=== PATIENT | female | born 1960 | race Native Hawaiian/Other Pacific Islander ===

== ENCOUNTER 2017-01-17 18:35 | Emergency (ER) | payer OTHER ==
[2017-01-17 18:43] VITALS: TEMP 98.1
--- NOTE | 2017-01-17 20:05 | C.PDOC ---
History Of Present Illness 56 year old patient presents to the ED complaining of twisting her ankle prior to arrival. Patient denies fever, numbness or weakness. Time Seen by Provider: 01/17/17 18:57 Chief Complaint (Nursing): Lower Extremity Problem/Injury History Per: Patient History/Exam Limitations: no limitations Onset/Duration Of Symptoms: Mins (prior to arrival) Current Symptoms Are (Timing): Still Present Severity: Mild Pain Scale Rating Of: 3 Recent travel outside of the [place]: No - Ankle/Foot Description Of Injury: Twisted Past Medical History Reviewed: Historical Data, Nursing Documentation, Vital Signs Vital Signs: Last Vital Signs Temp 98.1 F 01/17/17 18:39 Pulse 86 01/17/17 21:07 Resp 20 01/17/17 21:07 BP 116/74 01/17/17 21:07 Pulse Ox 96 01/17/17 22:10 - Medical History PMH: Asthma, HTN, Hypercholesterolemia Family History: States: Unknown Family Hx - Social History Hx Tobacco Use: No Hx Alcohol Use: No - Immunization History Hx Tetanus Toxoid Vaccination: No Hx Influenza Vaccination: Yes Hx Pneumococcal Vaccination: No Review Of Systems Except As Marked, All Systems Reviewed And Found Negative. Constitutional: Negative for: Fever Musculoskeletal: Positive for: Foot Pain (right), Other (right ankle pain) Skin: Positive for: Bruising (right foot) Neurological: Negative for: Weakness, Numbness Physical Exam - Physical Exam Appears: Non-toxic, No Acute Distress Skin: Warm, Dry, No Rash, Ecchymosis (right foot) Extremity: Other (Right ankle: tenderness to the lateral aspect of the malleolus and to the 4th and 5th metatarsal bones (-)deformity (+)decreased ROM secondary to pain) ED Course And Treatment O2 Sat by Pulse Oximetry: 96 - Other Rad right ankle xr X-Ray: Interpreted by Me, Viewed By Me Interpretation: Lateral malleolus fracture. Non-displaced. right foot xr X-Ray: Interpreted by Me, Viewed By Me Interpretation: Lateral malleolus fracture. Non-displaced. - CT Scan/US Head CT Other Rad Studies (CT/US): Read By Radiologist, Radiology Report Reviewed CT/US Interpretation: EXAM: CT Head Without Intravenous Contrast. CLINICAL HISTORY: 56 years old, female; Pain and injury or trauma; Fall; Initial encounter; Blunt trauma (contusions or. hematomas); Headache. TECHNIQUE: Axial computed tomography images of the head/brain without intravenous contrast. This CT exam. was performed using one or more of the following dose reduction techniques: automated exposure. control, adjustment of the mA and/or kV according to patient size, and/or use of iterative. reconstruction technique. Coronal and sagittal reformatted images were created and reviewed. COMPARISON: No relevant prior studies available. FINDINGS: Brain: No intracranial hemorrhage. No mass. No edema. Ventricles: No hydrocephalus. Bones/joints: No acute fracture. Soft tissues: Postsurgical changes of nose. Vasculature: Mild atherosclerotic disease of intracranial arteries. Sinuses: Scattered minimal mucosal thickening of ethmoid sinuses. Mastoid air cells: No mastoid effusion. Orbits: Unremarkable as visualized. 1. No intracranial hemorrhage. 2. Incidental/non-acute findings are described above. Thank you for allowing us to participate in the care of your patient. Dictated and Authenticated by: Huan Champion MD. 01/17/2017 9:26 PM Eastern Time ([place] & [place]) Progress Note: Right ankle and right foot x-ray taken. X-rays reviewed. Short leg splint applied to patient by forest technician and checked by me. Patient is discharged and instructed to follow up with ortho in 1-2 days or return if symptoms worsen. Disposition - Disposition Referrals: Christy Taylor MD [Staff Provider] - Disposition: HOME/ ROUTINE Disposition Time: 22:03 Condition: STABLE Additional Instructions: Follow up with PMD within 1-2 days. Return to ED if feel worse. Prescriptions: Ibuprofen [Motrin Tab] 600 mg PO Q8 #30 tab oxyCODONE/Acetaminophen [Percocet 5/325 mg Tab] 1 tab PO QID PRN #20 tab PRN Reason: Pain Instructions: Ankle Fracture (ED), Head Injury (ED) Forms: Work Excuse - Clinical Impression Clinical Impression: Minor head injury, Fx lateral malleolus-closed - PA / ROVER TENDER / Resident Statement MD/DO has reviewed & agrees with the documentation as recorded. - Scribe Statement The provider has reviewed the documentation as recorded by the Scribe Kelli Howard All medical record entries made by the Scribe were at my direction and personally dictated by me. I have reviewed the chart and agree that the record accurately reflects my personal performance of the history, physical exam, medical decision making, and the department course for this patient. I have also personally directed, reviewed, and agree with the discharge instructions and disposition.
[2017-01-17] MEDS ORDERED: Oxycodone/Acetaminophen 5/325 mg Tab PO STA (20:34)
[2017-01-17] MEDS ORDERED: Oxycodone/Acetaminophen 5/325 mg Tab ONE (20:40)
[2017-01-17 21:07] VITALS: BP 116/74; PULSE 86; RESP 20
--- NOTE | 2017-01-17 21:26 | CT ---
EXAM: CT Head Without Intravenous Contrast. CLINICAL HISTORY: 56 years old, female; Pain and injury or trauma; Fall; Initial encounter; Blunt trauma (contusions or hematomas); Headache TECHNIQUE: Axial computed tomography images of the head/brain without intravenous contrast. This CT exam was performed using one or more of the following dose reduction techniques: automated exposure control, adjustment of the mA and/or kV according to patient size, and/or use of iterative reconstruction technique. Coronal and sagittal reformatted images were created and reviewed. COMPARISON: No relevant prior studies available. FINDINGS: Brain: No intracranial hemorrhage. No mass. No edema. Ventricles: No hydrocephalus. Bones/joints: No acute fracture. Soft tissues: Postsurgical changes of nose. Vasculature: Mild atherosclerotic disease of intracranial arteries. Sinuses: Scattered minimal mucosal thickening of ethmoid sinuses. Mastoid air cells: No mastoid effusion. Orbits: Unremarkable as visualized. IMPRESSION: 1. No intracranial hemorrhage. 2. Incidental/non-acute findings are described above.
[2017-01-17 22:06] VITALS: O2SAT 96
--- NOTE | 2017-01-18 11:06 | RAD ---
PROCEDURE: Right foot dated 01/17/2017. HISTORY: fall COMPARISON: Correlation/comparison made with concurrent radiographs of the right ankle. FINDINGS: BONES: No evidence of acute displaced fracture nor dislocation. Osseous structures appear intact. JOINTS: Mild hallux valgus deformity with overgrowth of the 1st metatarsal and mild DJD 1st MTP joint. There is prominence of the overlying medial soft tissues . . Mild degenerative changes of the interphalangeal joints. Small posterior and tiny plantar calcaneal enthesophyte formation. SOFT TISSUES: As above OTHER FINDINGS: None. IMPRESSION: No acute fracture nor dislocation. Mild hallux valgus deformity with overgrowth of the head of the 1st metatarsal and mild DJD 1st MTP joint. There is also overlying mild medial soft tissue swelling.
--- NOTE | 2017-01-18 11:12 | RAD ---
PROCEDURE: Right Wrist Radiographs. HISTORY: injury COMPARISON: Correlation made with concurrent radiographs right foot. FINDINGS: BONES: No evidence of acute displaced fracture nor dislocation. The osseous structures intact. Ankle mortise maintained. Talar dome intact. Minor degenerative osteoarthritis. Small posterior and tiny plantar calcaneal enthesophyte formation. Minimal medial soft tissue swelling. JOINTS: Normal. No dislocation. SOFT TISSUES: As above OTHER FINDINGS: None. IMPRESSION: No acute fracture seen. Mild DJD. Minimal medial soft tissue swelling
== END 2017-01-17 22:25 | disposition home or self-care (01) ==
LOC: C.ER 18:35
DX: S82.64XA Nondisplaced fracture of lateral malleolus of right fibula, initial encounter for closed fracture (principal); S09.90XA Unspecified injury of head, initial encounter; X50.9XXA Other and unspecified overexertion or strenuous movements or postures, initial encounter

== ENCOUNTER 2017-10-24 18:19 | Emergency (ER) | payer OTHER ==
[2017-10-24 18:20] VITALS: BMI 22.3
[2017-10-24 20:03] VITALS: BP 126/80; PULSE 89; RESP 18; TEMP 98.7
[2017-10-24 20:04] VITALS: O2SAT 97
[2017-10-24] MEDS ORDERED: Oxycodone/Acetaminophen 5/325 mg Tab PO STA (20:04)
--- NOTE | 2017-10-24 20:04 | C.PDOC ---
History Of Present Illness Pia Trimble is a 57 year old female, with a past medical history of hypertension and asthma, who presents to the emergency department complaining of a worsening chronic neck pain, chills, sore throat, and congestion onset since yesterday. She denies any vomiting, or fever. No further medical complaints. PMD: Rosa Dodson Time Seen by Provider: 10/24/17 18:57 Chief Complaint (Nursing): Back Pain History Per: Patient History/Exam Limitations: no limitations Onset/Duration Of Symptoms: Days (x1) Current Symptoms Are (Timing): Still Present Quality Of Discomfort: "Pain" Pain Scale Rating Of: 9 Previous Symptoms: Neck Pain (chronic) Associated Symptoms: Other (chills, sore throat, congestion) Past Medical History Reviewed: Historical Data, Nursing Documentation, Vital Signs Vital Signs: Last Vital Signs Temp 98.7 F 10/24/17 20:02 Pulse 89 10/24/17 20:02 Resp 18 10/24/17 20:02 BP 126/80 10/24/17 20:02 Pulse Ox 97 10/24/17 20:50 - Medical History PMH: Asthma, HTN, Hypercholesterolemia Surgical History: Denies: Pacemaker Family History: States: Unknown Family Hx - Social History Hx Tobacco Use: No Hx Alcohol Use: Yes (OCCASIONAL) Hx Substance Use: No - Immunization History Hx Tetanus Toxoid Vaccination: No Hx Influenza Vaccination: Yes Hx Pneumococcal Vaccination: No Review Of Systems Except As Marked, All Systems Reviewed And Found Negative. Constitutional: Positive for: Chills. Negative for: Fever ENT: Positive for: Nose Congestion, Throat Pain Gastrointestinal: Negative for: Vomiting Musculoskeletal: Positive for: Neck Pain (chronic) Physical Exam - Physical Exam Skin: Normal Color, Warm, Dry Head: Atraumatic, Normacephalic Eye(s): bilateral: Normal Inspection, PERRL, EOMI Ear(s): Bilateral: Normal Nose: Normal Throat: No Erythema, No Exudate (tonsillar) Neck: No Normal (mildly diffused neck tenderness), Supple Cardiovascular: Rhythm Regular Respiratory: Normal Breath Sounds, No Accessory Muscle Use Gastrointestinal/Abdominal: Normal Exam, Soft, No Tenderness Back: Normal Inspection, No CVA Tenderness Extremity: Normal ROM, No Pedal Edema, No Deformity, No Swelling Neurological/Psych: Oriented x3, Normal Speech Gait: Steady ED Course And Treatment O2 Sat by Pulse Oximetry: 97 (RA) Pulse Ox Interpretation: Normal - Other Rad C-spine xray X-Ray: Interpreted by Me Interpretation: ALIX Medical Decision Making Medical Decision Making: Initial Impression: Chronic neck pain, pharyngitis Initial Plan: --Amoxicillin 500 mg PO --Percocet 1 tab PO --Cervical Spine AP & Lateral [RAD] --reevaluation Disposition - Disposition Disposition: HOME/ ROUTINE Disposition Time: 20:04 Condition: STABLE Additional Instructions: Follow up with your PMD within 2-3 days. Return to ED if feel worse. Prescriptions: Amoxicillin 500 mg PO Q8 #30 tab oxyCODONE/Acetaminophen [Percocet 5/325 mg Tab] 1 tab PO QID PRN #20 tab PRN Reason: Pain Instructions: Pharyngitis (ED) Forms: [facility] (Czech) - Clinical Impression Clinical Impression: Pharyngitis, Neck pain - Scribe Statement Thiago Minor All medical record entries made by the Scribe were at my direction and personally dictated by me. I have reviewed the chart and agree that the record accurately reflects my personal performance of the history, physical exam, medical decision making, and the department course for this patient. I have also personally directed, reviewed, and agree with the discharge instructions and disposition.
[2017-10-24] MEDS ORDERED: Oxycodone/Acetaminophen 5/325 mg Tab ONE (20:08)
--- NOTE | 2017-10-25 09:35 | RAD ---
PROCEDURE: Cervical Spine Radiographs. HISTORY: Pain. COMPARISON: None. FINDINGS: BONES: There is straightening of the cervical spine with loss of normal cervical lordosis. There is 3 mm degenerative retrolisthesis of C5 on C6. There is no acute fracture. The craniocervical junction is normal. The atlantoaxial joint is normal. DISC SPACES: There is moderate multilevel degenerative disc disease from C4-5 through C6-7 with anterior osteophytes, reduced disc heights and multilevel facet arthropathy, worse at C5-6. SOFT TISSUES: Normal. No prevertebral soft tissue swelling. OTHER FINDINGS: None. IMPRESSION: Moderate multilevel degenerative disc disease from C4-5 through C6-7, worse at C5-6 with degenerative 3 mm retrolisthesis of C5 on C6. Straightening of the cervical spine may be positional or related to muscle spasm.
== END 2017-10-24 20:12 | disposition home or self-care (01) ==
LOC: C.ER 18:19
DX: J02.9 Acute pharyngitis, unspecified (principal); M54.2 Cervicalgia; I10 Essential (primary) hypertension; E78.00 Pure hypercholesterolemia, unspecified

== ENCOUNTER 2017-12-16 06:56 | Day surgery (SDC) | payer OTHER ==
[2017-12-16] MEDS ORDERED: Bupivacaine HCl 0.25% PF (10 ml) Inj ONE (07:27)
[2017-12-16] MEDS ORDERED: Lidocaine Hydrochloride 0 ML INJ ONE (07:28)
[2017-12-16] MEDS ORDERED: MethylPREDNISolone Depo 40 mg/ml Inj ONE (07:28)
[2017-12-16] MEDS ORDERED: Iohexol 240 (50 ml) ONE ×2 (07:28→11:54)
[2017-12-16 07:58] VITALS: O2SAT 98
--- NOTE | 2017-12-16 09:57 | OP ---
PROCEDURE DATE: 12/16/2017. PREOPERATIVE DIAGNOSES: 1. Cervical radiculopathy. 2. Cervical disc displacement without myopathy. 3. Myalgias. POSTOPERATIVE DIAGNOSES: 1. Cervical radiculopathy. 2. Cervical disc displacement without myopathy. 3. Myalgias. PROCEDURES: 1. Cervical epidural steroid injection, C6-C7. 2. Epidurogram. 3. Trigger point injections. X-RAY: [id number], fluoroscopy of the spine. ANESTHESIA: MAC/local. SURGEON: Alphonse Saul MD COMPLICATIONS: None. BLOOD LOSS: 2 mL. BRIEF HISTORY AND INDICATIONS: The patient has cervical radiculopathy and upper extremity pain and tingling radiating down from the posterior neck down to the arm and posterior shoulder side to all fingers. This patient presents today for a cervical epidural steroid injection under fluoroscopic guidance at the C6-C7 interlaminar space. PROCEDURE IN DETAIL: The patient, after giving informed consent for the procedure, was brought back to the procedure room, sitting in a wheelchair. Routine monitors were applied. The patient was leant forward with her neck flexed and forehead placed on a towel on the OR table. Neck was flexed at approximately 50 degrees lateral. Lateral fluoroscopic view was obtained at the C6-C7 levels. The patient was prepped and draped in a sterile fashion. A 27-gauge needle was used to inject lidocaine 1% subcutaneously over the skin overlying the interlaminar space of C6-C7. Subsequently, a 22-gauge Tuohy needle was used to advance into the C6-C7 interlaminar area using loss of resistance technique to enter the epidural space. The needle position was confirmed in lateral views. Contrast 180 Omnipaque was injected 0.5 mL showing good epidurogram. Subsequently, 80 mg of Depo-Medrol with 1 mL of normal saline was injected with intermittent negative aspiration. No heme or CSF was aspirated throughout. No paresthesias were elicited throughout. The patient tolerated the procedure well. Vital signs remained stable. The patient reported slight reduction in pain post procedure. Epidurogram: The patient underwent cervical epidural steroid injection today. The epidural was observed at the level of C6-C7 under AP and lateral fluoroscopic guidance. 2 mL of Omnipaque 200 contrast was injected that evenly spread from level C4 to C7 level with posterior-anterior dye spread bilaterally at level of C6-C7 and C5-C6. There appeared to be a moderate degree spondylosis at the level of C5-C6 and moderate degree of spondylosis at the level of C6-C7 with disc protrusion at the level of C6-C7. The intervertebral disc height at the level of C5-C6 was slightly less than normal and intervertebral disc height at the level of C7-T1 was well maintained. The neural foramen appeared to be patent. Conclusion: Good epidural dye containment from C6-C7 with intervertebral disc protrusion at the level of C5-C6, C6-C7, maintaining less than normal intervertebral disc height at level C5-C6. Spondylosis noted at the level of C4 through T1. Copies of the images are on file. Trigger Point Injections/Greater and Lesser Occipital Nerve Blocks: Tender to palpation on cervical areas and pain shooting up posterior head. Patient signed informed consent. Cervical area was prepped and draped in sterile fashion. A 25-gauge needle was used to inject trigger point areas in trapezius muscles, paracervical muscles, and rhomboids bilaterally. The greater and lesser occipital nerves were also injected bilaterally by inserting needle 1 cm lateral and inferior to the posterior occipital protuberance. Total volume used was 10 mL of 0.25% Marcaine mixed with 40 mg Kenalog. Intermittent aspiration was done throughout with no heme or CSF aspirated throughout. Patient tolerated procedure well. DISPOSITION: Patient was taken to the recovery room in stable condition. Patient was given instructions to follow up in two weeks and was discharged in stable condition. No events or complications. Alphonse Saul MD
[2017-12-16 11:09] VITALS: BP 104/70; PULSE 66; RESP 18; TEMP 98.6
--- NOTE | 2017-12-16 13:48 | RAD ---
PROCEDURE: Intraoperative Fluoroscopy. HISTORY: CERVICAL RADICULOPATHY FINDINGS: Fluoroscopic assistance was provided for cervical epidural. Submitted images from the current procedure: 3.0. Please refer to the operative report from BRET Beard. Total exam DLP: 0.5 30 (mGy)
== END 2017-12-16 09:05 | disposition home or self-care (01) ==
LOC: C.SDS 06:56
PROVIDERS: ATTEND Anesthesiology Pain Medicine
DX: M50.123 Cervical disc disorder at C6-C7 level with radiculopathy (principal); M79.1 Myalgia
CPT/HCPCS: 20552; 62321; 82948; J1030; Q9966

== ENCOUNTER 2018-02-10 05:54 | Day surgery (SDC) | payer OTHER ==
[2018-02-10] MEDS ORDERED: Bupivacaine HCl 0.25% PF (30 ml) Inj ONE (07:16)
[2018-02-10] MEDS ORDERED: MethylPREDNISolone Depo 40 mg/ml Inj ONE (07:16)
[2018-02-10] MEDS ORDERED: Iohexol 240 (50 ml) ONE (07:17)
[2018-02-10] MEDS ORDERED: Lidocaine Hydrochloride 0 ML INJ ONE (07:17)
[2018-02-10 08:46] VITALS: BP 125/72; PULSE 66; RESP 15; TEMP 97.1; O2SAT 99
--- NOTE | 2018-02-10 15:20 | OP ---
PREOPERATIVE DIAGNOSES: 1. Cervical radiculopathy. 2. Cervical disc displacement without myopathy. 3. Myalgias. POSTOPERATIVE DIAGNOSES: 1. Cervical radiculopathy. 2. Cervical disc displacement without myopathy. 3. Myalgias. PROCEDURE: 1. Cervical epidural steroid injection, C6-C7. 2. Epidurogram. 3. Trigger point injections. X-RAY: [id number], fluoroscopy of the spine. ANESTHESIA: MAC/local. SURGEON: Alphonse Saul MD COMPLICATIONS: None. BLOOD LOSS: 2 mL. BRIEF HISTORY AND INDICATIONS: The patient has cervical radiculopathy and upper extremity pain and tingling radiating down from the posterior neck down to the arm and posterior shoulder side to all fingers. This patient presents today for a cervical epidural steroid injection under fluoroscopic guidance at the C6-C7 interlaminar space. PROCEDURE IN DETAIL: The patient, after giving informed consent for the procedure, was brought back to the procedure room, sitting in a wheelchair. Routine monitors were applied. The patient was leant forward with his neck flexed and forehead placed on a towel on the OR table. Neck was flexed at approximately 50 degrees lateral. Lateral fluoroscopic view was obtained at the C6-C7 levels. The patient was prepped and draped in a sterile fashion. A 27-gauge needle was used to inject lidocaine 1% subcutaneously over the skin overlying the interlaminar space of C6-C7. Subsequently, a 22-gauge Tuohy needle was used to advance into the C6-C7 interlaminar area using loss of resistance technique to enter the epidural space. The needle position was confirmed in lateral views. Contrast 180 Omnipaque was injected 0.5 mL showing good epidurogram. Subsequently, 80 mg of Depo-Medrol with 1 mL of normal saline was injected with intermittent negative aspiration. No heme or CSF was aspirated throughout. No paresthesias were elicited throughout. The patient tolerated the procedure well. Vital signs remained stable. The patient reported slight reduction in pain post procedure. Epidurogram: The patient underwent cervical epidural steroid injection today. The epidural was observed at the level of C6-C7 under AP and lateral fluoroscopic guidance. 2 mL of Omnipaque 200 contrast was injected that evenly spread from level C4 to C7 level with posterior-anterior dye spread bilaterally at level of C6-C7 and C5-C6. There appeared to be a moderate degree spondylosis at the level of C5-C6 and moderate degree of spondylosis at the level of C6-C7 with disc protrusion at the level of C6-C7. The intervertebral disc height at the level of C5-C6 was slightly less than normal and intervertebral disc height at the level of C7-T1 was well maintained. The neural foramen appeared to be patent. Conclusion: Good epidural dye containment from C6-C7 with intervertebral disc protrusion at the level of C5-C6, C6-C7, maintaining less than normal intervertebral disc height at level C5-C6. Spondylosis noted at the level of C4 through T1. Copies of the images are on file. Trigger Point Injections/Greater and Lesser Occipital Nerve Blocks: Tender to palpation on cervical areas and pain shooting up posterior head. Patient signed informed consent. Cervical area was prepped and draped in sterile fashion. A 25-gauge needle was used to inject trigger point areas in trapezius muscles, paracervical muscles, and rhomboids bilaterally. The greater and lesser occipital nerves were also injected bilaterally by inserting needle 1 cm lateral and inferior to the posterior occipital protuberance. Total volume used was 10 mL of 0.25% Marcaine mixed with 40 mg Kenalog. Intermittent aspiration was done throughout with no heme or CSF aspirated throughout. Patient tolerated procedure well. DISPOSITION: Patient was taken to the recovery room in stable condition. Patient was given instructions to follow up in two weeks and was discharged in stable condition. No events or complications. Alphonse Saul MD
--- NOTE | 2018-02-10 16:25 | RAD ---
PROCEDURE: Intraoperative Fluoroscopy. HISTORY: CERVICAL RADICULOPATHY FINDINGS: Fluoroscopic assistance was provided for C6-7 cervical epidural injection. Please refer to the operative report from BRET Beard.
== END 2018-02-10 08:45 | disposition home or self-care (01) ==
LOC: C.SDS 05:54
PROVIDERS: ATTEND Anesthesiology Pain Medicine
DX: M47.22 Other spondylosis with radiculopathy, cervical region (principal); M50.20 Other cervical disc displacement, unspecified cervical region
CPT/HCPCS: 20552; 62321; 82948; J1030; Q9966

== ENCOUNTER 2018-09-01 07:39 | Day surgery (SDC) | payer OTHER ==
[2018-09-01] MEDS ORDERED: Iohexol 240 (50 ml) ONE (09:25)
[2018-09-01 12:29] VITALS: BP 113/70; RESP 18; TEMP 97.8; O2SAT 98
[2018-09-01 12:36] VITALS: PULSE 72
--- NOTE | 2018-09-01 14:07 | RAD ---
Date of service: 09/01/2018 PROCEDURE: Intraoperative Fluoroscopy. HISTORY: CERVICAL RADICULOPATHY FINDINGS: Fluoroscopic assistance was provided for pain management. Please refer to the operative report from BRET Beard. Total fluoroscopic time (continuous mode) utilized during the procedure 7.1 (seconds). Total exam DLP: 0.48 (mGy).
--- NOTE | 2018-09-01 20:52 | OP ---
PROCEDURE DATE: 09/01/2018 PREOPERATIVE DIAGNOSES: 1. Cervical radiculopathy. 2. Cervical disc displacement without myopathy. 3. Myalgias. POSTOPERATIVE DIAGNOSES: 1. Cervical radiculopathy. 2. Cervical disc displacement without myopathy. 3. Myalgias. PROCEDURE: 1. Cervical epidural steroid injection, C6-C7. 2. Epidurogram. 3. Trigger point injections. X-RAY: [id number], fluoroscopy of the spine. ANESTHESIA: MAC/local. SURGEON: Alphonse Saul MD COMPLICATIONS: None. BLOOD LOSS: 2 mL. BRIEF HISTORY AND INDICATIONS: The patient has cervical radiculopathy and upper extremity pain and tingling radiating down from the posterior neck down to the arm and posterior shoulder side to all fingers. This patient presents today for a cervical epidural steroid injection under fluoroscopic guidance at the C6-C7 interlaminar space. PROCEDURE IN DETAIL: The patient, after giving informed consent for the procedure, was brought back to the procedure room, sitting in a wheelchair. Routine monitors were applied. The patient was leant forward with his neck flexed and forehead placed on a towel on the OR table. Neck was flexed at approximately 50 degrees lateral. Lateral fluoroscopic view was obtained at the C6-C7 levels. The patient was prepped and draped in a sterile fashion. A 27-gauge needle was used to inject lidocaine 1% subcutaneously over the skin overlying the interlaminar space of C6-C7. Subsequently, a 22-gauge Tuohy needle was used to advance into the C6-C7 interlaminar area using loss of resistance technique to enter the epidural space. The needle position was confirmed in lateral views. Contrast 180 Omnipaque was injected 0.5 mL showing good epidurogram. Subsequently, 80 mg of Depo-Medrol with 1 mL of normal saline was injected with intermittent negative aspiration. No heme or CSF was aspirated throughout. No paresthesias were elicited throughout. The patient tolerated the procedure well. Vital signs remained stable. The patient reported slight reduction in pain post procedure. Epidurogram: The patient underwent cervical epidural steroid injection today. The epidural was observed at the level of C6-C7 under AP and lateral fluoroscopic guidance. 2 mL of Omnipaque 200 contrast was injected that evenly spread from level C4 to C7 level with posterior-anterior dye spread bilaterally at level of C6-C7 and C5-C6. There appeared to be a moderate degree spondylosis at the level of C5-C6 and moderate degree of spondylosis at the level of C6-C7 with disc protrusion at the level of C6-C7. The intervertebral disc height at the level of C5-C6 was slightly less than normal and intervertebral disc height at the level of C7-T1 was well maintained. The neural foramen appeared to be patent. Conclusion: Good epidural dye containment from C6-C7 with intervertebral disc protrusion at the level of C5-C6, C6-C7, maintaining less than normal intervertebral disc height at level C5-C6. Spondylosis noted at the level of C4 through T1. Copies of the images are on file. Trigger Point Injections/Greater and Lesser Occipital Nerve Blocks: Tender to palpation on cervical areas and pain shooting up posterior head. Patient signed informed consent. Cervical area was prepped and draped in sterile fashion. A 25-gauge needle was used to inject trigger point areas in trapezius muscles, paracervical muscles, and rhomboids bilaterally. The greater and lesser occipital nerves were also injected bilaterally by inserting needle 1 cm lateral and inferior to the posterior occipital protuberance. Total volume used was 10 mL of 0.25% Marcaine mixed with 40 mg Kenalog. Intermittent aspiration was done throughout with no heme or CSF aspirated throughout. Patient tolerated procedure well. DISPOSITION: Patient was taken to the recovery room in stable condition. Patient was given instructions to follow up in two weeks and was discharged in stable condition. No events or complications. Alphonse Saul MD
== END 2018-09-01 10:00 | disposition home or self-care (01) ==
LOC: C.SDS 07:39
PROVIDERS: ATTEND Anesthesiology Pain Medicine
DX: M47.22 Other spondylosis with radiculopathy, cervical region (principal); M50.123 Cervical disc disorder at C6-C7 level with radiculopathy

== ENCOUNTER 2019-03-29 09:27 | Outpatient (CLI) | payer OTHER | END 2019-03-29 09:28 | disposition home or self-care (01) | LOC: C.USIC 09:27 ==